=== PATIENT | male | born 1970 | race Hispanic/Latino ===

== ENCOUNTER 2023-11-29 05:57 | Inpatient (IN) | payer BC, OTHER ==
[2023-11-29] VITALS (7 sets, daily range): BP systolic 136–152; BP diastolic 81–84; PULSE 74–92; RESP 18–20; O2SAT 97–98
[~2023-11-29] VITALS: Ht 182.9 cm; Wt 122.5 kg
[2023-11-29] MEDS: FAMOTIDINE 20MG VIAL IV SCH ×2 (08:51→20:54)
[2023-11-29] MEDS: 0.9%NACL 1000ML 1,000 ML IV SCH ×2 (08:51→18:15)
[2023-11-29] MEDS ORDERED: DIPHENHYDRAMINE HCL 25 MG CAPSULE PO PRN (09:00)
[2023-11-29] MEDS ORDERED: ACETAMINOPHEN 500 MG TABLET PO PRN (09:00)
[2023-11-29 09:33] LABS: BASOPHILS # (AUTO) 0.02 K/uL (0.00-0.20); BASOPHILS % (AUTO) 0.1 % (0.0-5.0); HEMATOCRIT 45.7 % (42-54); IMMATURE GRANULOCYTE ABSOLUTE 0.08 K/uL (0-1); LYMPHOCYTES # (AUTO) 0.7 K/uL (1.0-4.8); MEAN CORPUSCULAR HEMOGLOBIN 27.2 pg (27.0-33.0); MEAN CORPUSCULAR VOLUME 82.2 fL (79-99); MONOCYTES # (AUTO) 0.2 K/uL (0.1-1.0); MONOCYTES % (AUTO) 1.4 % (3.0-13.0); NEUTROPHILS # (AUTO) 13.1 K/uL (1.8-7.7); NEUTROPHILS % (AUTO) 92.9 % (40.0-77.0); PLATELET COUNT (AUTO) 214 K/uL (130-400); RED BLOOD CELL COUNT(AUTO) 5.56 MIL/uL (4.50-6.20); RED CELL DISTRIBUTION WIDTH 13.8 % (11.0-15.5); WHITE BLOOD COUNT (AUTO) 14.1 K/uL (4.8-10.8)
[2023-11-29 09:55] LABS: ALBUMIN 3.2 g/dL (3.5-5.0); BILIRUBIN,TOTAL 0.6 mg/dL (0.2-1.0); CREATININE 1.3 mg/dL (0.5-1.5); POTASSIUM 4.6 mmol/L (3.5-5.1); TOTAL PROTEIN, SERUM 6.6 g/dL (6.0-8.3)
[2023-11-29] MEDS ORDERED: LOSA100T59 PO (10:08)
[2023-11-29] MEDS ORDERED: METF-444 PO (10:08)
[2023-11-29] MEDS: CEFTRIAXONE 1G VIAL IVPB SCH (10:10)
[2023-11-29 11:16] LABS: HEMOGLOBIN A1C 6.4 % (4.0-6.0)
[2023-11-29] MEDS: INSULIN HUMULIN R 100 UNIT/ML 3ML SQ SCH ×3 (11:29→21:01)
[2023-11-29] MEDS: DIPHENHYDRAMINE HCL 25 MG CAPSULE PO SCH ×3 (11:30→20:54)
[2023-11-29] MEDS: SOLU-MEDROL 40MG VIAL IVP SCH ×2 (11:44→20:54)
[2023-11-29 12:22] LABS: APPEARANCE,URINE CLEAR (CLEAR); BILIRUBIN,URINE NEGATIVE (NEGATIVE); COLOR,URINE LIGHT-YELLOW (YELLOW); GLUCOSE, URINE (UA) 30 mg/dL (NEGATIVE); KETONES,URINE NEGATIVE (NEGATIVE); LEUKOCYTE ESTERASE ,URINE NEGATIVE Leu/uL (NEGATIVE); NITRATE,URINE NEGATIVE (NEGATIVE); OCCULT BLOOD,URINE NEGATIVE (NEGATIVE); PROTEIN,URINE NEGATIVE (NEGATIVE); UROBILINOGEN,URINE 0.2 mg/dL (0.2-1.0)
[2023-11-29 12:38] LABS: ADD UA MICROSCOPIC YES
[2023-11-29 13:00] LABS: MUCUS,URINE RARE LPF (None Seen); WBC,URINE 0-1 /HPF (0-1)
[2023-11-29 13:24] LABS: AMPHET/METH SCREEN,URINE NEGATIVE (NEGATIVE); BARBITURATE SCREEN, URINE NEGATIVE (NEGATIVE); BENZODIAZEPINES SCREEN,URINE NEGATIVE (NEGATIVE); CANNABINOID SCREEN,URINE NEGATIVE (NEGATIVE); COCAINE SCREEN,URINE POSITIVE (NEGATIVE); OPIATE SCREEN,URINE POSITIVE (NEGATIVE); PHENCYCLIDINE SCREEN,URINE NEGATIVE (NEGATIVE)
[2023-11-29] MEDS: NICOTINE 14 MG/ 24 HR PATCH TD SCH (14:54)
[2023-11-29] MEDS: MORPHINE 2 MG SYG IVP PRN ×2 (15:26→21:26)
[2023-11-29] MEDS ORDERED: CHLORDIAZEPOXIDE HCL 25 MG CAP PO PRN ×2 (17:00)
[2023-11-29] MEDS ORDERED: ONDANSETRON 4MG INJ IV PRN (17:00)
[2023-11-29] MEDS ORDERED: LORAZEPAM 2 MG/ML 1 ML VIAL IVP PRN ×2 (17:00)
[2023-11-29] MEDS ORDERED: PHARMACY COMMUNICATION MISC PRN (17:00)
[2023-11-29] MEDS: THIAMINE HCL 100 MG, FOLIC ACID 1 MG, M.V.I. IV [ADULT] 10 ML in 0.9%NACL 1000ML 1,000 ML IV SCH (18:29)
[2023-11-29] MEDS: LOSARTAN 100 MG TABLET PO SCH (20:54)
[2023-11-29] MEDS: ENOXAPARIN SODIUM 30 MG/0.3 ML SQ SCH (20:54)
[2023-11-29] MEDS ORDERED: IOHEXOL 350 MG/ML 100ML INFUS..BTL IV ONE (21:23)
[2023-11-29 23:18] LABS: SARS-CoV-2, RNA, NAAT NEGATIVE SARS CoV-2 (NEGATIVE)
[2023-11-29 23:21] LABS: INFLUENZA TYPE A Negative For Type A (NEGATIVE); INFLUENZA TYPE B Negative For Type B (NEGATIVE)
[2023-11-30] VITALS (7 sets, daily range): BP systolic 148–166; BP diastolic 84–94; PULSE 68–79; RESP 18; O2SAT 96–97
[2023-11-30] MEDS: SOLU-MEDROL 40MG VIAL IVP SCH ×3 (04:58→20:02)
[2023-11-30] MEDS: DIPHENHYDRAMINE HCL 25 MG CAPSULE PO SCH ×3 (04:58→20:02)
[2023-11-30 05:29] LABS: BASOPHILS # (AUTO) 0.02 K/uL (0.00-0.20); BASOPHILS % (AUTO) 0.2 % (0.0-5.0); HEMATOCRIT 42.8 % (42-54); IMMATURE GRANULOCYTE ABSOLUTE 0.06 K/uL (0-1); MEAN CORPUSCULAR HEMOGLOBIN 27.3 pg (27.0-33.0); MEAN CORPUSCULAR VOLUME 85.3 fL (79-99); MONOCYTES # (AUTO) 0.4 K/uL (0.1-1.0); MONOCYTES % (AUTO) 2.8 % (3.0-13.0); NEUTROPHILS # (AUTO) 11.5 K/uL (1.8-7.7); NEUTROPHILS % (AUTO) 88.5 % (40.0-77.0); PLATELET COUNT (AUTO) 186 K/uL (130-400); RED BLOOD CELL COUNT(AUTO) 5.02 MIL/uL (4.50-6.20)
[2023-11-30] MEDS: INSULIN HUMULIN R 100 UNIT/ML 3ML SQ SCH ×4 (05:34→20:33)
[2023-11-30 05:43] LABS: POTASSIUM 4.3 mmol/L (3.5-5.1)
[2023-11-30] MEDS ORDERED: FOLIC ACID 1 MG TABLET PO SCH (09:00)
[2023-11-30] MEDS ORDERED: MULTIVITAMIN TABLET PO SCH (09:00)
[2023-11-30] MEDS ORDERED: THIAMINE HCL 100 MG/ML 2ML VIAL IM SCH (09:00)
[2023-11-30] MEDS: ENOXAPARIN SODIUM 30 MG/0.3 ML SQ SCH ×2 (09:01→20:03)
[2023-11-30] MEDS: FAMOTIDINE 20MG VIAL IV SCH ×2 (09:01→20:02)
[2023-11-30] MEDS: CEFTRIAXONE 1G VIAL IVPB SCH (09:02)
[2023-11-30] MEDS: LOSARTAN 100 MG TABLET PO SCH ×2 (09:02→20:02)
[2023-11-30] MEDS: NICOTINE 14 MG/ 24 HR PATCH TD SCH (09:02)
[2023-11-30] MEDS: MORPHINE 2 MG SYG IVP PRN ×2 (09:06→20:26)
[2023-11-30] MEDS: THIAMINE HCL 100 MG, FOLIC ACID 1 MG, M.V.I. IV [ADULT] 10 ML in 0.9%NACL 1000ML 1,000 ML IV SCH (16:45)
[2023-12-01 00:32] VITALS: BP 150/88; PULSE 90; RESP 18
[2023-12-01] MEDS: SOLU-MEDROL 40MG VIAL IVP SCH (04:08)
[2023-12-01] MEDS: DIPHENHYDRAMINE HCL 25 MG CAPSULE PO SCH (04:08)
[2023-12-01 04:22] LABS: HEMATOCRIT 44.2 % (42-54); MEAN CORPUSCULAR HEMOGLOBIN 27.1 pg (27.0-33.0); MEAN CORPUSCULAR HGB CONC 31.4 g/dL (32.0-36.0); MEAN CORPUSCULAR VOLUME 86.3 fL (79-99); RED BLOOD CELL COUNT(AUTO) 5.12 MIL/uL (4.50-6.20); RED CELL DISTRIBUTION WIDTH 13.9 % (11.0-15.5); WHITE BLOOD COUNT (AUTO) 11.9 K/uL (4.8-10.8)
[2023-12-01 05:29] VITALS: BP 152/76; PULSE 75; RESP 18
[2023-12-01] MEDS: INSULIN HUMULIN R 100 UNIT/ML 3ML SQ SCH (05:59)
[2023-12-01] MEDS: MORPHINE 2 MG SYG IVP PRN (05:59)
[2023-12-01 08:00] VITALS: O2SAT 97
[2023-12-01 08:12] VITALS: BP 159/99; PULSE 58; RESP 18
== END 2023-12-01 10:00 | disposition left against medical advice (07) | DRG 683 ==
LOC: OBSVTOIN 07:14 → EDHIP 07:14 → 2AH 18:25
PROVIDERS: ADMIT Internal Medicine; ATTEND Internal Medicine
DX: N17.9 Acute kidney failure, unspecified (principal); M62.82 Rhabdomyolysis; Z20.822 Contact with and (suspected) exposure to COVID-19; F14.10 Cocaine abuse, uncomplicated; F10.10 Alcohol abuse, uncomplicated; E66.01 Morbid (severe) obesity due to excess calories; F17.210 Nicotine dependence, cigarettes, uncomplicated; G89.29 Other chronic pain; I12.9 Hypertensive chronic kidney disease with stage 1 through stage 4 chronic kidney disease, or unspecified chronic kidney disease; E11.22 Type 2 diabetes mellitus with diabetic chronic kidney disease; N18.9 Chronic kidney disease, unspecified; M54.50 Low back pain, unspecified; Z68.36 Body mass index [BMI] 36.0-36.9, adult; Z79.1 Long term (current) use of non-steroidal anti-inflammatories (NSAID); Z91.198 Patient's noncompliance with other medical treatment and regimen for other reason; Z79.899 Other long term (current) drug therapy; Z79.84 Long term (current) use of oral hypoglycemic drugs
CPT/HCPCS: 36415; 71275; 73630; 80048; 80053; 80305; 81001; 82550; 82948; 83036; 83690; 83874; 84145; 84484; 85025; 85027; 85378; 86140; 87040; 87635; 87804; 93306; 93356; 93970; G0378; J0696; J1650; J1815; J2270; J2920; J3411; J3490; J7030; Q0163; Q9967